=== PATIENT | male | born 1960 | race Caucasian/White ===

== ENCOUNTER → 2017-09-24 07:40 | Outpatient (CLI) | payer BC, SELFPAY ==
--- NOTE | 2017-09-24 07:47 | XR_ITS ---
XR knee LT 3V HISTORY: ITS.REASON: LT KNEE PAIN ORDERING PHYSICIAN: Williams Arias MD PATIENT AGE: 57 years COMPARISON: None FINDINGS: No fracture or dislocation. No lytic or blastic change. Normal mineralization. No significant arthritic changes evident. No other significant findings IMPRESSION: Negative left Knee
--- NOTE | 2017-09-24 07:47 | US_ITS ---
US abdomen limited COMPARISON: None available HISTORY:Nausea and vomiting ORDERING PHYSICIAN: Williams Arias MD PATIENT AGE: 57 years Sagittal, transverse and decubitus imaging of the gallbladder was performed. GALLBLADDER - No stones are evident. There is no gallbladder wall thickening. Common duct is normal in diameter. Liver: Hepatic steatosis with increased echogenicity of the liver for through transmission of sound Pancreas: Unremarkable Right kidney: Unremarkable appearing. No hydronephrosis. IMPRESSION: 1. Negative gallbladder ultrasound. 2. Fatty liver
== END ==
PROVIDERS: Family Provider Internal Medicine Adolescent Medicine; PCP Internal Medicine Adolescent Medicine; Visit Provider Internal Medicine Adolescent Medicine
DX: R19.7 Diarrhea, unspecified (principal); M25.562 Pain in left knee
CPT/HCPCS: 73562; 76705

== ENCOUNTER → 2018-02-09 09:31 | Outpatient (CLI) | payer BC, SELFPAY ==
[2018-02-09 09:34] LABS: Adenovirus F 40/41, stool Not Detected (NotDetected); Astrovirus Not Detected (NotDetected); Campylobacter Not Detected (NotDetected); Clostridium Difficile A/B, PCR Not Detected (NotDetected); Cryptosporidium Not Detected (NotDetected); Cyclospora Cayetanesis Not Detected (NotDetected); Entamoeba histolytica Not Detected (NotDetected); Enteroaggregative E coli Not Detected (NotDetected); Enteropathogenic E coli Not Detected (NotDetected); Enterotoxigenic E coli Not Detected (NotDetected); Giardia lamblia Not Detected (NotDetected); Norovirus Not Detected (NotDetected); Plesimonas Shigalloides, PCR Not Detected (NotDetected); Rotavirus A Not Detected (NotDetected); Salmonella, PCR Not Detected (NotDetected); Sapovirus Not Detected (NotDetected); Shiga-like toxin E coli Not Detected (NotDetected); Shigella Enterovasive E coli Not Detected (NotDetected); Vibrio Cholerae Not Detected (NotDetected); Vibrio, PCR Not Detected (NotDetected); Yersinia Entercolitica, PCR Not Detected (NotDetected)
== END ==
PROVIDERS: Family Provider Internal Medicine Adolescent Medicine; PCP Internal Medicine Adolescent Medicine; Visit Provider Surgery
DX: R19.7 Diarrhea, unspecified (principal)
CPT/HCPCS: 87507

== ENCOUNTER → 2020-11-25 11:49 | Outpatient (CLI) | payer BC, SELFPAY ==
--- NOTE | 2020-11-25 11:53 | XR_ITS ---
PROCEDURE: XR ELBOW RT MIN 3V CLINICAL INDICATION: LATERAL EPICONDYLITIS OF RT ELBOW COMPARISON: No exams were available for comparison FINDINGS: No fracture or dislocation. No lytic or blastic change. There is normal mineralization. The joint spaces are well-preserved. No significant degenerative/arthritic changes. No erosive changes evident. Other findings:There is a small enthesophyte at the olecranon IMPRESSION: No acute findings. Dictated by: Chema Ocampo MD 11/25/2020 12:16 Chema Ocampo MD in [place] 11/25/2020 12:16
== END ==
PROVIDERS: PCP Internal Medicine Adolescent Medicine; Visit Provider Internal Medicine Adolescent Medicine
DX: M77.11 Lateral epicondylitis, right elbow (principal)
CPT/HCPCS: 73080

== ENCOUNTER → 2021-03-03 10:26 | Outpatient (CLI) | payer BC, SELFPAY ==
[2021-03-03 10:50] LABS: Basophils # 0.1 K/mm3 (0-0.2); Basophils % 0.8 % (0.1-2.0); Eosinophils # 0.4 K/mm3 (0.0-0.4); Eosinophils % 5.3 % (0.1-12.0); Hematocrit 46.8 % (42.0-52.0); Hemoglobin 16.6 g/dL (14.1-18.0); Lymphocytes % 27.6 % (10-50); Mean Corpuscular HGB Conc 35.5 g/dL (31.8-35.4); Mean Corpuscular Hemoglobin 32.5 pg (27.0-31.2); Mean Corpuscular Volume 91.6 fl (80-94); Mean Platelet Volume 8.1 fl (7.4-10.4); Monocytes # 0.4 K/mm3 (0.1-1.0); Monocytes % 5.4 % (1.7-9.3); Neutrophils # 4.3 K/mm3 (1.8-7.8); Platelet Count 293 K/mm3 (142-424); Red Blood Count 5.11 M/mm3 (4.60-6.20); Red Cell Distribution Width 12.8 % (11.5-17.5); White Blood Count 7.1 K/mm3 (4.8-10.8)
[2021-03-03 11:09] LABS: Chloride 102 mmol/L (98-107)
[2021-03-03 11:10] LABS: Potassium 4.6 mmoL/L (3.5-5.1); Sodium 141 mmol/L (136-145)
[2021-03-03 11:12] LABS: Alanine Aminotransferase 56 U/L (12-78); Albumin/Globulin Ratio 1.6 (1.1-1.8); Alkaline Phosphatase 79 U/L (38-126); Anion Gap 18.6 mEq/L (5-15); Aspartate Amino Transferase 47 U/L (17-59); Bilirubin,Total 0.7 mg/dl (0.2-1.3); Blood Urea Nitrogen 16 mg/dl (9-20); Carbon Dioxide 25 mmol/L (22.0-30.0); Estimated Glomerular Filt Rate 87 ml/min (>60); GFR (African American) 105 ML/MIN (>60); Globulin 3.2 g/dL (1.3-3.2); Total Protein,Serum 8.2 g/dl (6.3-8.2)
[2021-03-03 11:13] LABS: Chol/HDL Ratio 4.3 (1-3.5); Cholesterol 180 mg/dl (140-200); Glucose 128 mg/dl (74-100); HDL Cholesterol 42 mg/dl (40-60); Triglycerides 284 mg/dl (30-150); VLDL Cholesterol 57 mg/dL (0-40)
[2021-03-03 11:24] LABS: Direct LDL Cholesterol 104.47 mg/dL (100-129)
[2021-03-03 11:30] LABS: 25-OH Vitamin D, Total 46.2 ng/mL (30-100)
[2021-03-03 11:35] LABS: Hemoglobin A1C 7.1 % (4.0-6.0)
[2021-03-03 20:59] LABS: Vitamin B12 343 pg/mL (239-931)
== END ==
PROVIDERS: Visit Provider Internal Medicine Adolescent Medicine
DX: E11.9 Type 2 diabetes mellitus without complications (principal); E78.5 Hyperlipidemia, unspecified; G60.9 Hereditary and idiopathic neuropathy, unspecified
CPT/HCPCS: 36415; 80053; 80061; 82306; 82607; 83036; 85025

== ENCOUNTER → 2021-06-04 09:51 | Outpatient (CLI) | payer BC, SELFPAY ==
[2021-06-04 10:28] LABS: Anion Gap 15.6 mEq/L (5-15); Blood Urea Nitrogen 16 mg/dl (9-20); Calcium 10.5 mg/dl (8.4-10.2); Carbon Dioxide 28 mmol/L (22.0-30.0); Chloride 103 mmol/L (98-107); Estimated Glomerular Filt Rate 99 ml/min (>60); GFR (African American) 120 ML/MIN (>60); Glucose 111 mg/dl (74-100); Potassium 4.6 mmoL/L (3.5-5.1); Sodium 142 mmol/L (136-145)
[2021-06-04 10:58] LABS: Hemoglobin A1C 6.6 % (4.0-6.0)
== END ==
PROVIDERS: Visit Provider Internal Medicine Adolescent Medicine
DX: E11.9 Type 2 diabetes mellitus without complications (principal); G60.9 Hereditary and idiopathic neuropathy, unspecified; Z79.84 Long term (current) use of oral hypoglycemic drugs
CPT/HCPCS: 36415; 80048; 83036

== ENCOUNTER → 2021-11-10 10:21 | Outpatient (CLI) | payer BC, SELFPAY ==
--- NOTE | 2021-11-10 10:31 | XR_ITS ---
FINAL REPORT CLINICAL HISTORY: LT SHOULDER PAIN, PAIN WITH MOVEMENT FINDINGS: LEFT SHOULDER: 3 views of the left shoulder were obtained. There is no acute fracture or dislocation. There is mild AC joint degenerative change. There is no soft tissue abnormality. IMPRESSION: Mild AC joint degenerative change. Reviewed, Interpreted and Dictated by Telly Rea III, MD Transcribed by Afshin Haque Authenticated by Telly Rea III, MD on 11/10/2021 12:20:28 PM [facility]
== END ==
PROVIDERS: PCP Internal Medicine Adolescent Medicine; Visit Provider Internal Medicine Adolescent Medicine
DX: M25.512 Pain in left shoulder (principal)
CPT/HCPCS: 73030

== ENCOUNTER → 2021-11-28 13:05 | Outpatient (CLI) | payer BC, SELFPAY ==
--- NOTE | 2021-11-28 13:08 | MR_ITS ---
FINAL REPORT CLINICAL HISTORY: ROTATOR CUFF SYNDROME. limited rom. shoulder pain [id number]. no injury or trauma. weakness. FINDINGS: Multi planar MR imaging of the left shoulder was performed. The supraspinatus tendon appears intact. There is no abnormal fluid in the subacromial/subdeltoid bursa. The anterior and posterior glenoid iraida appear intact. The biceps tendon appears intact. There are mild hypertrophic changes of the a.c. joint. IMPRESSION: Mild hypertrophic changes of the a.c. joint. Reviewed, Interpreted and Dictated by Oswald Cummins MD Transcribed by Tashia Chacko Authenticated by Oswald Cummins MD on 11/28/2021 02:12:43 PM [facility]
== END ==
PROVIDERS: PCP Internal Medicine Adolescent Medicine; Visit Provider Internal Medicine Adolescent Medicine
DX: M75.102 Unspecified rotator cuff tear or rupture of left shoulder, not specified as traumatic (principal); M25.512 Pain in left shoulder; G56.92 Unspecified mononeuropathy of left upper limb
CPT/HCPCS: 73221